=== PATIENT | female | born 1935 | race Caucasian/White ===

== ENCOUNTER 2017-12-06 13:28 | Outpatient (CLI) | payer MEDICARE ==
--- NOTE | 2017-12-07 06:56 | CT Report ---
CT BRAIN WITHOUT CONTRAST: 12/06/2017 CLINICAL INDICATION: Dizziness, history of meningioma resection. COMPARISON: 06/07/2015. TECHNIQUE: Axial CT images of the brain were obtained without intravenous contrast. FINDINGS: The ventricles and sulci demonstrate mild symmetric enlargement, compatible with atrophy. The basilar cisterns are patent. There is no evidence of hemorrhage, mass effect, or midline shift. Postsurgical changes in the right frontal bone are stable. The visualized orbital contents and paranasal sinuses are unremarkable. The mastoid air cells are normally pneumatized. IMPRESSION 1. STABLE POSTOPERATIVE CHANGES. 2. MILD ATROPHY. NO EVIDENCE OF HEMORRHAGE OR MASS EFFECT. CT DOSE REDUCTION STATEMENT In accordance with CT protocol optimization, one or more of the following dose reduction techniques were utilized for this exam: automated exposure control, adjustment of mA and/or KV based on patient size, or use of iterative reconstructive technique. TD: 12/07/2017 06:55
== END 2017-12-06 13:29 | disposition home or self-care (01) ==
LOC: DI 13:28
PROVIDERS: ATTEND Family Medicine
DX: R42 Dizziness and giddiness (principal)
CPT/HCPCS: 70450

== ENCOUNTER 2020-06-02 03:02 | Emergency (ER) | payer MEDICARE ==
--- NOTE | 2020-06-02 03:22 | ED Physician Documentation ---
PD HPI ABD PAIN - Stated complaint Stated Complaint: ABD PX - Chief complaint Chief Complaint: Abd Pain - History obtained from History obtained from: Patient - History of Present Illness Timing - onset: Enter time (18:30), Yesterday Timing - duration: Hours Timing - details: Gradual onset, Constant, Waxing and waning Pain level now: 8 Quality: Pain Location: LLQ Radiation: Other (no radiation) Improved by: Position Worsened by: Breathing, Position, Palpation Associated symptoms: No: Fever, Nausea, Vomiting, Diarrhea, Constipation, Melena, Hematochezia Recently seen: Not recently seen - Additional information Additional information: c/o LLQ pain since 6:30 PM yesterday, constant and steadily worsening in severity. She thought she might be constipated and thus took ex-lax without relief Review of Systems Constitutional: denies: Fever, Chills, Sweats Cardiac: reports: Reviewed and negative Respiratory: reports: Reviewed and negative GI: reports: Abdominal Pain. denies: Abdominal Swelling, Nausea, Vomiting, Constipation, Diarrhea : denies: Dysuria, Frequency Skin: denies: Rash PD PAST MEDICAL HISTORY - Past Medical History Cardiovascular: None, Other Endocrine/Autoimmune: HyPOthyroidism GI: Diverticulitis [employer]: Breast cancer - Past Surgical History Past Surgical History: Yes General: Cholecystectomy, Appendectomy Ortho: Arthroscopic surgery /[employer]: Mastectomy Neuro: Craniotomy - Present Medications Home Medications: Ambulatory Orders Medication Instructions Recorded Confirmed Epinephrine [Epipen] 0.3 mg IM ONCE PRN #1 unit 03/31/13 12/11/15 Amox/Clav 875/125 [Augmentin] 1 each PO Q12H #14 tablet 06/02/20 - Allergies Allergies/Adverse Reactions: Allergies Allergy/AdvReac Type Severity Reaction Status Date / Time venom-honey bee Allergy Intermediate Hives Verified 01/25/13 13:17 [bee venom (honey bee)] tetracycline [Tetracycline] Allergy Mild vomiting Verified 01/25/13 13:17 rosuvastatin calcium * AdvReac Unknown Verified 06/07/15 19:53 [From Crestor] - Social History Does the pt smoke?: No Smoking Status: Never smoker Does the pt drink ETOH?: Yes Does the pt have substance abuse?: No - Immunizations Immunizations are current?: Yes - POLST Patient has POLST: No PD ED PE NORMAL - Vitals Vital signs reviewed: Yes - General General: Alert and oriented X 3, No acute distress, Well developed/nourished - Cardiac Cardiac: RRR, No murmur - Respiratory Respiratory: No respiratory distress, Clear bilaterally - Abdomen Abdomen: Soft, Non distended - Back Back: No CVA TTP - Derm Derm: Normal color, Warm and dry, No rash PD ED PE EXPANDED - Abdomen Abdomen: Normal Bowel sounds, Tender to palpation, LLQ. No: Distended, Rebound, Guarding Results - Vitals Vitals: Vital Signs - 24 hr 06/02/20 06/02/20 06/02/20 03:05 05:20 05:49 Temperature 37 C 36.5 C Heart Rate 92 73 Respiratory 14 14 Rate Blood Pressure 154/70 H 143/69 H O2 Saturation 98 95 Oxygen O2 Source Room air - Labs Labs: Laboratory Tests 06/02/20 06/02/20 06/02/20 03:35 03:39 03:56 WBC 9.6 RBC 4.19 L Hgb 12.5 Hct 38.1 MCV 90.9 MCH 29.8 MCHC 32.8 RDW 12.9 Plt Count 208 MPV 8.4 Neut # (Auto) 7.0 H Lymph # (Auto) 1.1 L [place] # (Auto) 1.4 H Eos # (Auto) 0.1 Baso # (Auto) 0.0 Absolute Nucleated RBC 0.00 Nucleated RBC % 0.0 Sodium 139 Potassium 3.8 Chloride 104 Carbon Dioxide 26 Anion Gap 9.0 BUN 13 Creatinine 0.5 Estimated GFR (MDRD) 117 Glucose 123 H Calcium 9.4 Total Bilirubin 1.1 H AST 22 ALT 23 Alkaline Phosphatase 94 Total Protein 7.1 Albumin 4.4 Globulin 2.7 Albumin/Globulin Ratio 1.6 Lipase 51 Urine Color YELLOW Urine Clarity CLEAR Urine pH 7.0 Ur Specific [place] 1.015 Urine Protein NEGATIVE Urine Glucose (UA) NEGATIVE Urine Ketones NEGATIVE Urine Occult Blood NEGATIVE Urine Nitrite NEGATIVE Urine Bilirubin NEGATIVE Urine Urobilinogen 0.2 (NORMAL) Ur Leukocyte Esterase NEGATIVE Ur Microscopic Review NOT INDICATED Urine Culture Comments NOT INDICATED - Rads (name of study) CT A/P with IV contrast Radiology: Prelim report reviewed, See rad report PD MEDICAL DECISION MAKING - ED course Complexity details: reviewed results, re-evaluated patient, considered differential, d/w patient Departure - Departure Disposition: 01 Home, Self Care Clinical Impression: Diverticulitis Condition: Good Instructions: ED Diverticulitis Follow-Up: [facility] Estevez [Primary Care Provider] - Prescriptions: Amox/Clav 875/125 [Augmentin] 1 each PO Q12H #14 tablet Discharge Date/Time: 06/02/20 05:55
[2020-06-02 03:39] LABS: BILIRUBIN,URINE NEGATIVE (NEGATIVE); CLARITY,URINE CLEAR (CLEAR); GLUCOSE, URINE (UA) NEGATIVE (NEGATIVE); KETONES,URINE (UA) NEGATIVE (NEGATIVE); LEUKOCYTE ESTERASE, URINE NEGATIVE (NEGATIVE); NITRITE,URINE NEGATIVE (NEGATIVE); OCCULT BLOOD,URINE NEGATIVE (NEGATIVE); PROTEIN,URINE NEGATIVE (NEGATIVE); UROBILINOGEN,URINE 0.2 (NORMAL) E.U./dL (NORMAL)
[2020-06-02 03:59] LABS: BASOPHILS % (AUTO) 0.3 %; EOSINOPHILS # (AUTO) 0.1 10^3/uL (0.0-0.7); HGB - HEMOGLOBIN 12.5 g/dL (12.0-16.0); LYMPHOCYTES # (AUTO) 1.1 10^3/uL (1.5-3.5); LYMPHOCYTES % (AUTO) 11.4 %; MEAN CORPUSCULAR HEMOGLOBIN 29.8 pg (27.0-31.0); MEAN CORPUSCULAR HGB CONC 32.8 g/dL (32.0-36.0); MEAN CORPUSCULAR VOLUME 90.9 fL (81.0-99.0); MEAN PLATELET VOLUME 8.4 fL (7.9-10.8); MONOCYTES # (AUTO) 1.4 10^3/uL (0.0-1.0); MONOCYTES % (AUTO) 14.2 %; NEUTROPHILS % (AUTO) 72.8 %; PLT - PLATELET COUNT 208 10^3/uL (130-450); RED BLOOD COUNT 4.19 10^6/uL (4.20-5.40); RED CELL DISTRIBUTION WIDTH 12.9 % (12.0-15.0); WHITE BLOOD COUNT 9.6 x10^3/uL (4.8-10.8)
[2020-06-02 04:03] LABS: ALBUMIN 4.4 g/dL (3.2-5.5); ALBUMIN/GLOBULIN RATIO 1.6 (1.0-2.2); BILIRUBIN,TOTAL 1.1 mg/dL (0.2-1.0); CALCIUM 9.4 mg/dL (8.5-10.3); CREATININE 0.5 mg/dL (0.4-1.0); TOTAL PROTEIN 7.1 g/dL (6.7-8.2)
[2020-06-02] MEDS ORDERED: IOVERSOL 320 100 ML VIAL IVP ONE ×2 (04:13→04:53)
[2020-06-02 05:30] VITALS: BP 143/69
[2020-06-02] MEDS ORDERED: AMOX/CLAV 875 MG/125 MG TABLET PO STA (05:34)
--- NOTE | 2020-06-02 08:35 | CT Report ---
PROCEDURE: Abdomen/Pelvis W INDICATIONS: abd. pain CONTRAST: IV CONTRAST: Optiray 320 ml: 100 PO CONTRAST: *NO PO CONTRAST TECHNIQUE: After the administration of weight appropriate dose of intravenous contrast, 5 mm thick sections acqu ired from the diaphragms to the symphysis. 5 mm thick coronal and sagittal reformats were acquired. For radiation dose reduction, the following was used: automated exposure control, adjustment of mA and/or kV according to patient size. COMPARISON: 12/11/2015. FINDINGS: Image quality: Excellent. ABDOMEN: Lung bases: Lung bases are clear. Heart size is normal. Moderate-sized hiatal hernia Solid organs: Liver and spleen are normal in size and enhancement. Gallbladder is surgically absent . Biliary system is non dilated. Pancreas enhances normally. No adrenal nodules. Kidneys demonstr ate normal size and enhancement, without hydronephrosis. Peritoneum and bowel: Scattered colonic diverticula peridiverticular inflammatory change involving th e mid to distal segment of the descending colon. No evidence for perforation or abscess formation. Re mainder of the visualized bowel loops demonstrate normal wall thickness and caliber. No free fluid o r air. Status post prior appendectomy. Nodes and vessels: No retroperitoneal or mesenteric adenopathy by size criteria. Aorta and inferior vena cava are normal in size. Atherosclerotic calcifications of the abdominal aorta. Miscellaneous: No ventral hernias. PELVIS: Genitourinary: Bladder wall thickness is normal. Miscellaneous: No inguinal hernias or adenopathy. Bones: No suspicious bony lesions. No acute vertebral body compression fractures. Multilevel spond ylosis of the imaged spine. IMPRESSION: 1. Colonic diverticulosis with acute diverticulitis involving the mid and distal segment of the desce nding colon without evidence for perforation or abscess formation. 2. Status post appendectomy and cholecystectomy. 3. Moderate size hiatal hernia. 4. Atherosclerosis. No significant discrepancy with initial interpretation by overnight radiologist. Reviewed by: Stef Fowler MD on 06/02/2020 8:34 AM PDT Approved by: Stef Fowler MD on 06/02/2020 8:34 AM PDT Station ID: [id number]
== END 2020-06-02 05:55 | disposition home or self-care (01) ==
LOC: ED 03:02
DX: K57.30 Diverticulosis of large intestine without perforation or abscess without bleeding (principal); K44.9 Diaphragmatic hernia without obstruction or gangrene
CPT/HCPCS: 36415; 74177; 80053; 81003; 83690; 85025; 99284; A9270; Q9967; 81001; 87086